=== PATIENT | female | born 1960 | race Caucasian/White ===

== ENCOUNTER 2016-07-20 06:24 | Day surgery (SDC) | payer BC ==
[2016-07-18 16:49] LABS: HEMATOCRIT 41.7 % (36.0-48.0); HEMOGLOBIN 13.6 g/dL (12.0-16.0)
[2016-07-18 17:01] LABS: BUN (BLOOD UREA NITROGEN) 15 MG/DL (6-23); CALCIUM, SERUM 9.1 MG/DL (8.5-10.4); CHLORIDE, SERUM 104 MMOL/L (96-112); CO2 (CARBON DIOXIDE) 32 MMOL/L (24-34); CREATININE 0.74 MG/DL (0.55-1.02); GFR AFRICAN AMERICAN 104 ML/MIN (>=60); GFR NON AFRICAN AMERICAN 90 ML/MIN (>=60); GLUCOSE, SERUM 107 MG/DL (60-99); SODIUM, SERUM 140 MMOL/L (135-148)
--- NOTE | ~2016-07-20 | OP ---
Record Of Operation [facility] [address] [place]. [address] NAME: ERIKA CASILLAS : 58 STATUS : [facility]#: [id number] AGE: 56 ADM/REG DATE : 07/20/16 MR#: [id number] REPORT SERV DATE: 07/22/16 DICTATED BY: ABRAHAM CRAMER II DATE: 07/22/16 REPORT STATUS : Draft TRANSCRIBED BY: MODCarlos DATE: 07/22/16 DATE OF PROCEDURE: 07/20/2016 PREOPERATIVE DIAGNOSES: 1. Lower extremity radiculopathy secondary to lumbar spinal stenosis. 2. Significant facet arthrosis, L4-5. POSTOPERATIVE DIAGNOSES: 1. Lower extremity radiculopathy secondary to lumbar spinal stenosis. 2. Significant facet arthrosis, L4-5. PROCEDURE: 1. Lumbar laminectomy, L4-L5. 2. Use of the microscope and stereotactic spinal imaging. SURGEON: Abraham Cramer M.D. ESTIMATED BLOOD LOSS: 15 mL. DRAINS: None. COMPLICATIONS: None. ANTIBIOTIC: Preoperatively. 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 She and her also take care of their grandchild, Polo. She and I discussed the pros and cons of surgery. She does have significant facet arthrosis but no evidence of instability at L4-5. We discussed the potential for development of this. We discussed the surgery itself as well as the procedure, risks, benefits, and overall expected outcomes. DESCRIPTION OF PROCEDURE: After informed consent was obtained, the patient was brought to the operating room at her request and general anesthesia achieved. She was placed in the prone position, and the back was prepped and draped in a sterile fashion. The stereotactic spinal imaging pin was placed into the iliac crest and the intraoperative CT scan completed. The minimally invasive incision was now performed on the left at L4-5. The quadrant retractor was placed at L4-5 and the microscope brought into place. Under microscopic visualization, the spinal laminar junction was now taken down and the central canal identified. The hypertrophic ligamentum flavum was removed followed by removal of portions of the facet bilaterally. The L5 nerve roots were well decompressed in the lateral recesses. The L4 nerve roots did not exhibit significant foraminal compression. At this point, I was very pleased with the decompression of the L5 nerve roots. The area was now irrigated. Hemostasis was achieved. Record Of Operation [address] [place] [address] NAME: ERIKA CASILLAS : 58 STATUS : [facility]#: [id number] AGE: 56 ADM/REG DATE : 07/20/16 MR#: [id number] REPORT SERV DATE: 07/22/16 DICTATED BY: ABRAHAM CRAMER II DATE: 07/22/16 REPORT STATUS : Draft TRANSCRIBED BY: CORDELL DATE: 07/22/16 Next, the standard closure was performed, and the patient extubated and transferred to PACU in stable condition. I discussed the procedure with her and also she was given appropriate followup. FORD/CORDELL Abraham Cramer II, M.D. / [id number] CC: Tony Young II, M.D.
[~2016-07-20 06:24] MED LIST: ESTRACE0.5 MG PO; MYRBETRIQ25 MG PO; P20 PO; PRIN5 PO
== END 2016-07-20 13:29 | disposition home or self-care (01) ==
LOC: SDC 06:24
PROVIDERS: Orthopaedic Surgery
PROC: 01NB0ZZ Release Lumbar Nerve, Open Approach (ICD-10-PCS; principal; 2016-07-20 08:15)
DX: M48.06 Spinal stenosis, lumbar region (principal); M47.26 Other spondylosis with radiculopathy, lumbar region; I10 Essential (primary) hypertension; Z88.1 Allergy status to other antibiotic agents; Z88.2 Allergy status to sulfonamides; Z90.710 Acquired absence of both cervix and uterus; Z79.818 Long term (current) use of other agents affecting estrogen receptors and estrogen levels; Z79.899 Other long term (current) drug therapy
CPT/HCPCS: 80048; 85014; 85018; 88304; 88311; 93005; A9270-GY; J0690; J2250; J2270; J2405; J2710; J3010